=== PATIENT | male | born 1970 | race Caucasian/White ===

== ENCOUNTER 2025-03-12 22:56 | Emergency (ER) | payer OTHER, SELFPAY ==
[2025-03-12 22:58] VITALS: BP 111/79
[2025-03-12 23:16] LABS: Hematocrit 40.5 % (39.0-52.0); Hemoglobin 13.4 g/dL (13.0-18.0); Mean Corp Hgb Conc. 33.1 g/dL (33.0-37.0); Mean Corpuscular Volume 91.2 fL (80.0-94.0); Nucleated Red Blood Cells % 0 % (-); Platelet Count 297 10^3/uL (130-400); Red Cell Dist. Width 14.2 % (11.5-14.5)
[2025-03-12 23:39] LABS: ALT (SGPT) 24 U/L (0-50); AST (SGOT) 23 U/L (17-59); Albumin 4.3 g/dl (3.5-5.0); Alkaline Phosphatase 69 U/L (38-126); Blood Urea Nitrogen 21 mg/dl (9-20); Calcium 9.4 mg/dl (8.4-10.2); Carbon Dioxide 28 mmol/L (22-30); Chloride 107 mmol/L (98-107); Glucose 111 mg/dl (70-99); Potassium 4.2 mmol/L (3.5-5.1); Sodium 141 mmol/L (135-145); Total Protein 6.8 g/dl (6.3-8.2); eGFR > 60.00
--- NOTE | 2025-03-13 02:13 | ED.GENMED ---
History of Present Illness
General
Chief Complaint: Dizziness
Source: patient
Exam Limitations: none
Time Seen by Provider: 03/13/25 00:40
Nursing documentation reviewed up to this point in time: agreed with
History of Present Illness
History of Present Illness:
55-year-old male presenting to the emergency department today from a restaurant with concerns of dizziness initially. During my assessment he claims that he had a brief episode but otherwise feels well and has no symptoms at this time he not want
any further assessment. Patient claims that he knows that he is in the hospital he knows the month he knows the president. He denies any thoughts of harming himself or others. He was offered resources for any psychiatric help as needed of which
he claims that he already has follow-up and was mentioning a in [place]. He did request to leave at this
Past History
Past History
ED Past Medical History: Psychiatric (Bipolar)
ED Past Surgical History: None
Social History
Tobacco: Non-smoker
Alcohol: None
Personal: Single
Living: with roommate
Employment: Not employed
Family History
Family History: Other (Noncontributory)
Review of Systems
Review of Systems
Allergies reviewed?: Yes
All Other Systems: ROS reviewed and negative except as documented in HPI and ROS
Phy Exam
Physical Exam
Physical Exam:
GENERAL: Alert , in no apparent distress
EYE: pupils equal and reactive
NECK: Supple, no significant adenopathy.
ENT: o/p clr, mmm.
CARDIAC: Regular rate and rhythm .
LUNGS: Clear breath sounds bilaterally, no acute respiratory distress, no wheezes/rales/rhonchi
ABDOMEN: Soft, without focal tenderness, no r/g, no cvat
NEUROLOGICAL: Alert and oriented, no focal neuro deficits walking with steady gait
SKIN: Warm and dry, skin intact.
MUSCULOSKELETAL: No edema, well perfused.
PSYCH: Patient was tangential during history taking and did have a flight of ideas. He was able to answer questions when directed.
Course
Orders/Labs/Results
Orders:
Orders
03/12/25 23:03
Electrocardiogram (*1) Urgent
Reason for Study: Vertigo / Dizzy
EKG- Treatment ONCE
03/12/25 23:12
Complete Blood Count/With Diff Urgent
Comprehensive Metabolic Panel Urgent
03/13/25 01:08
Crisis Consult Urgent
Reason for Consult: psychaitric illness, unknonw f/u,
Abnormal Lab Results
03/12/25
23:12
RBC 4.44 L 10^6/uL
(4.70-6.10)
Absolute Monos (auto) 0.7 H 10^3/uL
(0.1-0.6)
Monocytes % 10.1 H %
(1.7-9.3)
BUN 21 H mg/dl
(9-20)
Glucose 111 H mg/dl
(70-99)
03/12/25 23:12
03/12/25 23:12
Vital Signs
Initial and Last Documented VS:
Initial Vital Signs
Temp Pulse Resp BP Pulse Ox
98.5 F 77 20 111/79 96
03/12/25 22:58 03/12/25 22:58 03/12/25 22:58 03/12/25 22:58 03/12/25 22:58
Last Documented Vital Signs
Temp Pulse Resp BP Pulse Ox
98.5 F 62 22 111/79 96
03/12/25 22:58 03/12/25 23:56 03/12/25 23:56 03/12/25 22:58 03/12/25 23:56
MDM/Problems Addressed
MDM/Problems Addressed:
55-year-old male presenting to the emergency department after dizziness episode. He currently denies any symptoms and does not want any further workup. He denies any thoughts of harming himself or others. Vital signs normal here and labs
unremarkable. Patient walking with steady gait. Stable for discharge. Patient did leave prior to receiving paperwork.
*Pulse Oximetry
SaO2: 96
Oxygen Mode of Delivery: Room air
Patient hypoxic: no (96)
*Critical Care Note
Total Time (30-74mins, 75-104mins- exclusive of procedures): Not Applicable
ED Attending Note
-
Portions of this chart may have been created with voice recognition software.� Occasional wrong word or��sound alike� substitutions may have occurred due to the inherent limitations of voice recognition software.
Discharge Plan
Departure
Patient Disposition: Home (Routine Discharge)
Date of Disposition: 03/13/25
Time of Disposition: 02:17
Patient with high blood pressure during this ER visit?: No
Condition: Good
Covid-19: Not Applicable
Discharge Problem:
Dizziness
Instructions: Dizziness, Nonvertigo, (DC)
Prescriptions:
No Action
Depakote
500 mg PO AMHS
Depakote
1,000 mg PO HS
Zyprexa
100 mg PO HS
Referrals:
PRIVATE,PHYSICIAN [Family Provider, Internal Medicine]
Interventions
Interventions:
*Risk Screen - Suicide Last Done: 03/12/25 23:01
*General Assessment Last Done: 03/12/25 23:14
*Neglect/Abuse Screening Last Done: 03/12/25 23:01
*ED COVID-19 Vaccine History Last Done: 03/12/25 23:01
Discharge Date and Time
Print Language: TELUGU
== END 2025-03-13 02:24 | disposition home or self-care (01) ==
LOC: EMR 22:56
PROVIDERS: EMERGENCY PHYSICIAN Student in an Organized Health Care Education/Training Program
DX: R42 Dizziness and giddiness (principal); F31.9 Bipolar disorder, unspecified
CPT/HCPCS: 99283; 80053; 85025; 93005

== ENCOUNTER 2025-03-13 06:27 | Emergency (ER) | payer OTHER, SELFPAY ==
[2025-03-13 06:52] VITALS: BP 137/80
--- NOTE | 2025-03-13 07:10 | EDRN ---
Pt asking to eat and administered a boxed lunch at this time.
--- NOTE | 2025-03-13 07:17 | ED.GENMED ---
History of Present Illness
General
Chief Complaint: Social Service Referral
Source: patient and records
Exam Limitations: none
Time Seen by Provider: 03/13/25 07:09
Nursing documentation reviewed up to this point in time: agreed with
History of Present Illness
History of Present Illness:
55-year-old male with history as noted presents to the ER 'I am just here to speak to a social media project manager.' He was apparently here last night and refused assessment after being brought in by police from [employer] after reportedly not paying
his bill. He says that he is here because he is homeless and is looking for a bus pass to [place] and so he wants to speak to a social media project manager. He denies any acute complaints and does not want any medical assessment at this time. His only other
request is that we provide him with hospital socks and he asks if we have clothes for him.
Past History
Past History
ED Past Medical History: Psychiatric (Bipolar)
ED Past Surgical History: None
Social History
Tobacco: Non-smoker
Alcohol: None
Personal: Single
Living: with roommate
Employment: Not employed
Family History
Family History: Other (Noncontributory)
Review of Systems
Review of Systems
All Other Systems: ROS reviewed and negative except as documented in HPI and ROS
Respiratory: Denies trouble breathing
Cardiac: Denies chest pain
ABD/GI: Denies abdominal pain
Neurological: Denies dizzy or headache
Phy Exam
Physical Exam
Physical Exam:
General: Well appearing and non-toxic, sitting in bed eating lunch tray
HEENT: protecting airway
Neck: appears supple
CV: No evidence of cyanosis
Resp: No accessory muscle use
Abd: Non-distended
Extremities: No deformities
Neuro: Alert
Psych: Normal affect
Scores
Heart Failure Risk
Heart Failure Risk Score: Not Applicable
Heart Score for Chest Pain Patients
STEMI patient?: Not applicable
Withdrawal Assessment of Alcohol
Withdrawal Assessment Completed?: Not applicable
Course
Vital Signs
Initial and Last Documented VS:
Initial Vital Signs
Temp Pulse Resp BP Pulse Ox
36.6 C 61 16 137/80 97
03/13/25 06:52 03/13/25 06:52 03/13/25 06:52 03/13/25 06:52 03/13/25 06:52
Last Documented Vital Signs
Temp Pulse Resp BP Pulse Ox
36.6 C 61 16 137/80 97
03/13/25 06:52 03/13/25 06:52 03/13/25 06:52 03/13/25 06:52 03/13/25 06:52
MDM/Problems Addressed
Differential Diagnosis Includes:
Social service request
MDM/Problems Addressed:
55-year-old male presents requesting to speak to a social media project manager; he says that he is homeless and trying to obtain transportation to [place]. Also requesting socks and close. I provided him with hospital socks and offered to hold him here in
the emergency room until social media project manager arrives at 8:30 AM. He says that he does not wish to wait and wants to leave the emergency room now. Stable for discharge.
*Pulse Oximetry
SaO2: 97
Oxygen Mode of Delivery: Room air
Patient hypoxic: no (97%)
*Critical Care Note
Total Time (30-74mins, 75-104mins- exclusive of procedures): Not Applicable
Data Reviewed
Source: patient and records
Patient Management
Social determinants of health affecting care: Living situation (Homeless)
ED Attending Note
-
Portions of this chart may have been created with voice recognition software.� Occasional wrong word or��sound alike� substitutions may have occurred due to the inherent limitations of voice recognition software.
Discharge Plan
Departure
Patient Disposition: Home (Routine Discharge)
Date of Disposition: 03/13/25
Time of Disposition: 07:16
Patient with high blood pressure during this ER visit?: No
Discharge Problem:
Homelessness
Instructions: Your Dental Health and Your Medical Health
Prescriptions:
No Action
Depakote
500 mg PO AMHS
Depakote
1,000 mg PO HS
Zyprexa
100 mg PO HS
Referrals:
UNKNOWN - PT NOT,INTERVIEWE [Family Provider]
Interventions
Interventions:
*Risk Screen - Suicide Last Done: 03/13/25 06:53
*Neglect/Abuse Screening Last Done: 03/13/25 06:53
Discharge Date and Time
Print Language: NEPALI
--- NOTE | 2025-03-13 07:33 | EDRN ---
After seen by Dr. Trammell and eating his boxed lunch pt ambulated out of ED. Pt asked if he wished his paperwork and declined discharge paperwork. Pt also stated, 'I am not waiting here until 8:30 for manager social services.' Dr. Trammell was informed.
== END 2025-03-13 07:38 | disposition home or self-care (01) ==
LOC: EMR 06:27
PROVIDERS: EMERGENCY PHYSICIAN Emergency Medicine
DX: F31.9 Bipolar disorder, unspecified (principal); Z59.00 Homelessness unspecified
CPT/HCPCS: 99282